=== PATIENT | male | born 1955 | race Caucasian/White ===

== ENCOUNTER 2019-06-05 20:15 | Emergency (ER) | payer OTHER ==
[2019-06-05 20:38] VITALS: BP 158/93; PULSE 97; TEMP 97.8; BMI 27.3
--- NOTE | 2019-06-06 06:20 | PDOC ---
Documentation entered by Jenna Guthrie SCRIBE, acting as scribe for Jacob Bird MD. Jacob Bird MD: This documentation has been prepared by the Melony newman Maria, SCRIBE, under my direction and personally reviewed by me in its entirety. I confirm that the documentation accurately reflects all work, treatment, procedures, and medical decision making performed by me. History of Present Illness - General Chief Complaint: Pain Stated Complaint: ERECTION FOR 9 HOURS Time Seen by Provider: 06/05/19 20:38 History Source: Patient Exam Limitations: No Limitations - History of Present Illness Initial Comments: 06/05/19 21:01 The patient is a 65 year old male with no significant past medical history who presents to the emergency department for evaluation of an erection lasting over 9 hours. As per patient, he reports injecting himself with Vyleesi on his abdomen along with taking viagra this morning prior to sexual intercourse. Patient reports he has taken viagra in the past prior to intercourse without having any issues. The patient's erection began to subside in the ED. He reports Patient denies any pain. Past History - Past Medical History Allergies/Adverse Reactions: Allergies Allergy/AdvReac Type Severity Reaction Status Date / Time SEASONAL ALLERGIES Allergy Intermediate SNEEZING Uncoded 06/05/19 20:19 NKDA Allergy Uncoded 06/05/19 20:19 Home Medications: Ambulatory Orders Bremelanotide Acetate [Vyleesi] 1.75 mg SQ DAILY PRN 06/05/19 Sildenafil Citrate [Viagra] 25 mg PO DAILY PRN 06/05/19 Anemia: No Asthma: No Cancer: No Cardiac Disorders: No CVA: No COPD: No CHF: No Dementia: No Diabetes: No GI Disorders: Yes (GERD COLONIC POLYPS) Disorders: Yes (BPH/CHRONIC PROSTATIS) HTN: No Hypercholesterolemia: No Liver Disease: No Seizures: No Thyroid Disease: No Other medical history: Erectile dysfunction - Surgical History Abdominal Surgery: No Appendectomy: No Cardiac Surgery: No Cholecystectomy: No Lung Surgery: No Neurologic Surgery: No Orthopedic Surgery: No - Psycho Social/Smoking Cessation Hx Smoking History: Never smoked Have you smoked in the past 12 months: No Information on smoking cessation initiated: No Hx Alcohol Use: No Drug/Substance Use Hx: No Substance Use Type: None Hx Substance Use Treatment: No Review of Systems - Review of Systems Able to Perform ROS?: Yes Comments:: 06/05/19 21:01 GENERAL/CONSTITUTIONAL: No fever or chills. No weakness. HEAD, EYES, EARS, NOSE AND THROAT: No change in vision. No ear pain or discharge. No sore throat. CARDIOVASCULAR: No chest pain or shortness of breath. RESPIRATORY: No cough, wheezing, or hemoptysis. GASTROINTESTINAL: No nausea, vomiting, diarrhea or constipation. GENITOURINARY: No dysuria, frequency, or change in urination. MUSCULOSKELETAL:+erection over 9 hours.. No neck or back pain. SKIN: No rash NEUROLOGIC: No headache, vertigo, loss of consciousness, or change in strength/sensation. ENDOCRINE: No increased thirst. No abnormal weight change. HEMATOLOGIC/LYMPHATIC: No anemia, easy bleeding, or history of blood clots. ALLERGIC/IMMUNOLOGIC: No hives or skin allergy. *Physical Exam - Vital Signs Last Vital Signs Temp Pulse Resp BP Pulse Ox 97.8 F 97 H 18 158/93 97 06/05/19 20:22 06/05/19 20:22 06/05/19 20:22 06/05/19 20:22 06/05/19 20:22 - Physical Exam 06/05/19 21:01 GENERAL: Awake, alert, and fully oriented, in no acute distress HEAD: No signs of trauma EYES: PERRLA, EOMI, sclera anicteric, conjunctiva clear ENT: Auricles normal inspection, hearing grossly normal, nares patent, oropharynx clear without exudates. Moist mucosa NECK: Normal ROM, supple, no lymphadenopathy, JVD, or masses LUNGS: Breath sounds equal, clear to auscultation bilaterally. No wheezes, and no crackles HEART: Regular rate and rhythm, normal S1 and S2, no murmurs, rubs or gallops ABDOMEN: Soft, nontender, normoactive bowel sounds. No guarding, no rebound. No masses EXTREMITIES: Normal range of motion, no edema. No clubbing or cyanosis. No cords, erythema, or tenderness NEUROLOGICAL: Cranial nerves II through XII grossly intact. Normal speech, normal gait SKIN: Warm, Dry, normal turgor, no rashes or lesions noted. Medical Decision Making - Medical Decision Making 06/06/19 06:20 physical exam: detumesced circumcised penis, with some edema proximal to glans a/p priapism, resolved fu Discharge - Discharge Information Problems reviewed: Yes Clinical Impression/Diagnosis: Priapism Condition: Good Disposition: HOME - Follow up/Referral - Patient Discharge Instructions Patient Printed Discharge Instructions: DI for Priapism Additional Instructions: Please call your urologist in the morning - Post Discharge Activity
== END 2019-06-05 21:09 | disposition home or self-care (01) ==
LOC: FER 20:15
DX: N48.30 Priapism, unspecified (principal); J30.2 Other seasonal allergic rhinitis; K21.9 Gastro-esophageal reflux disease without esophagitis; N40.0 Benign prostatic hyperplasia without lower urinary tract symptoms
CPT/HCPCS: 99282-25